=== PATIENT | female | born 1960 | race Caucasian/White ===

== ENCOUNTER → 2016-10-25 | Day surgery (SDC) | payer OTHER ==
[~2016-10-25] MED LIST: ACETAMINOPHEN/HYDROcodone 325 MG/5 MG TAB ONE; BUPIVACAINE/EPINEPHRINE 0.5% PF 10 ML VIAL ONE; BUPIVACAINE/EPINEPHRINE 0.5% PF 30 ML VIAL ONE; ISOSULFAN BLUE 50 MG/5 ML VIAL SQ ONE; LACTATED RINGER'S 1000 ML INJ 1,000 ML ONE; MIDAZOLAM HCL 2 MG/2 ML VIAL ONE; NEOMYCIN/POLYMYXIN/BACITRACIN OINT 15 GM TUBE ONE; ONDANSETRON HCL 4 MG/2 ML VIAL IV PUSH ONE; PROPOFOL 200 MG/20 ML AMP IV ONE; SODIUM CHLORIDE 0.9% 20 ML VIAL ONE; ceFAZolin 2 GM PREMIX 50 ML ONE
--- NOTE | 2016-10-25 17:00 | TN ---
cc: WHITE,KEILA DATE OF SURGERY 10/25/16 PREOPERATIVE DIAGNOSIS 1. Large metastatic right breast cancer. 2. Status post neoadjuvant chemotherapy. POSTOPERATIVE DIAGNOSIS 1. Large metastatic right breast cancer. 2. Status post neoadjuvant chemotherapy. PROCEDURES PERFORMED 1. Needle-localized lumpectomy left breast. 2. Left axillary node sampling with injection of isosulfan blue. SURGEON Allyson Garsia MD PAN WASHER Juan Armas MS III ANESTHESIA General LMA COMPLICATIONS None INDICATIONS FOR PROCEDURE Miss Hanley is a pleasant 56-year-old female who had a large left breast mass noted on mammography. She underwent biopsy and this confirmed to be an infiltrating ductal carcinoma. She had an MRI that showed a very large mass about 4.5 cm with three enlarged nodes in left axilla. She had a PET scan which confirmed metastatic disease to the axilla and the primary tumor. Because of the metastatic disease, she was offered neoadjuvant chemotherapy. The patient underwent neoadjuvant chemotherapy and a follow-up MRI after completion of chemotherapy showed resolution of the tumor and the decrease in the adenopathy. She was offered lumpectomy versus mastectomy. The patient was encouraged to consider mastectomy due to her large tumor size and positive family history of breast cancer. However, the patient elected to have lumpectomy. I advised her if she had positive margins that she would require mastectomy. She expressed understanding. The patient wanted to try lumpectomy first. Risks and benefits of lumpectomy as well as axillary sampling was discussed with her and she was agreeable. PROCEDURE IN DETAIL The patient was identified, brought to the operating and placed supine on the operating table. Adequate general anesthesia was achieved via LMA. The left breast and axilla was prepped and draped in standard surgical fashion. Five mL devices of isosulfan blue was injected into the left periareolar position as well as along the wire localization at the 3 o'clock position in the left breast. Attention was directed to the left axilla proper. 0.25% Marcaine was injected. A transverse incision was made. The subcutaneous skin flaps were then raised in all directions. Dissection proceeded down to the lateral border pectoralis major entering the axilla proper. Immediately we saw blue channels going to several blue nodes and several palpable firm nodes. We went ahead and excised all these nodes in toto using electrocautery Bovie. Care was taken to identify and preserve the axillary vein as well as the long thoracic and thoracodorsal nerves. Once we did this, by direct palpation there was some other higher nodes that were enlarged and fairly firm. I elected to go ahead and excise these nodes as well. After we completed removing these additional nodes, it was noted this was a fairly extensive axillary sampling as most of the fatty tissue and the lymph nodes in the axilla proper had been excised. The long thoracic and thoracodorsal nerves were clearly visible and undisturbed. Axillary vein was also visualized. Intercostal brachial nerve was sacrificed during the dissection. Once we did this, there was no other palpable nodes. There was no blue dye that we could see going any other places in the axilla proper. At this point, we elected to go ahead and wash the axilla out and place a 7-Amharic Jared-Stevenson drain through a separate stab wound incision. The wound was then closed in two layers using 3-0 and 4-0 Vicryl. Ten mL of local was injected into the drain. Sterile dressings were applied. Attention was now directed to the left breast. The patient had a wire localization in 3 o'clock position of left breast. By preoperative imaging, she was noted to have an extensive tumor in the left middle and upper quadrants of the left breast. An elliptical incision was therefore made from the nipple out to the axilla to include the wire localization. Subcutaneous skin flaps were then raised in all directions with generous margins. Dissection proceeded all the way down to the prepectoral fascia from which the fatty tissue was carefully dissected off. The specimen was excised in toto and sent to radiology for analysis. Dr. Parks called back stating that the residual clip was present as there was no residual mass. Then by direct palpation I could feel some very firm gritty tissue along the superior and medial borders of our lumpectomy excision. I went ahead and excised this as additional superior border and medial border. Once I did this, there was no other gritty or firm tissue noted. The wound was copiously irrigated with normal saline solution. The wound was then closed in two layers using 3-0 and 4-0 Vicryl. Sterile dressings were applied. The lumpectomy cavity was then filled with 25 mL of 0.25% Marcaine. The patient tolerated the procedure well, was awakened, brought to recovery in stable condition. MD RAGHAVENDRA Plata /3:16 PM /4:42 PM
== END | disposition home or self-care (01) ==
LOC: ESDC 09:49
PROVIDERS: ATTEND Surgery Trauma Surgery
DX: C50.912 Malignant neoplasm of unspecified site of left female breast (principal)
CPT/HCPCS: 00400; 01610; 19125; 38525; 38792; 88307; J0690; J2250; J2405; J3010; J7120; Q9968

== ENCOUNTER → 2016-11-06 | Day surgery (SDC) | payer OTHER ==
[~2016-11-06] MED LIST changes: +BUPIVACAINE LIPOSOME PF 1.3% 20 ML VIAL ONE; +BUPIVACAINE/EPINEPHRINE 0.5% 50 ML VIAL ONE; -BUPIVACAINE/EPINEPHRINE 0.5% PF 10 ML VIAL ONE; -BUPIVACAINE/EPINEPHRINE 0.5% PF 30 ML VIAL ONE; -ISOSULFAN BLUE 50 MG/5 ML VIAL SQ ONE; +KETOROLAC TROMETHAMINE 30 MG/ML (IVP) VIAL ONE; +MORPHINE SULFATE 4 MG/ML INJ ONE; -NEOMYCIN/POLYMYXIN/BACITRACIN OINT 15 GM TUBE ONE
--- NOTE | 2016-11-06 11:24 | TN ---
cc: KEILA MICHAEL M.D. DATE OF SURGERY: 11/06/2016 PREOPERATIVE DIAGNOSIS 1. Metastatic left breast cancer. 2. Status post neoadjuvant chemotherapy. POSTOPERATIVE DIAGNOSIS 1. Metastatic left breast cancer. 2. Status post neoadjuvant chemotherapy. PROCEDURE PERFORMED Bilateral simple mastectomy. SURGEON Keila Michael PLASTIC CNC MACHINE OPERATOR EPI Ibrahim ANESTHESIA General LMA. COMPLICATIONS None. INDICATION FOR PROCEDURE Ms. Hanley is a pleasant 56-year-old female who presented with a large left breast cancer with obvious axillary metastatic disease. She underwent neoadjuvant chemotherapy for this. By MRI and physical exam the tumor appeared to have resolved. She then underwent a needle-localized lumpectomy as well as an axillary sampling. Unfortunately, she was found to have a large amount of gross tumor still left in the left breast as well as 11/12 nodes positive. She was advised to undergo mastectomy. The patient requested prophylactic mastectomy on the right side for symmetry. The risks and benefits of bilateral mastectomy was discussed with her and she was agreeable. DETAILS OF PROCEDURE The patient was identified, brought to the operating room and placed supine on the operating table. After adequate general anesthesia was achieved with LMA, the anterior chest and axillae were prepped and draped in a standard surgical fashion. Attention was first directed to the right breast. An elliptical skin incision 9 x 18 cm was made around the anterior breast. Subcutaneous skin flaps were then raised cephalad to the clavicle, medially to the sternum, inferiorly to the inframammary ridge and laterally to the midaxillary line. Once the skin flaps had been raised in all directions the breast was dissected up off the pectoralis major muscle using electrocautery Bovie. The breast was followed up to the axillary tail where it was transected. The specimen was labeled with a short stitch superior and a long stitch lateral. The wound was copiously irrigated with normal saline solution. All bleeding points were controlled with electrocautery Bovie. A 10 Lithuanian Jared-Stevenson drain was then inserted through a separate stab wound incision after anesthetizing the skin and subcutaneous tissue with 0.25% Marcaine. The wound was then closed in three layers using 2-0 Vicryl, 3-0 Vicryl and 4-0 Vicryl. The drain was secured with 4-0 nylon. Sterile dressings were applied and attention was directed to the left side. On the left side a similar 9 x 18 cm elliptical incision was used. We included the previous lumpectomy incision inside of the surgical incision. Subcutaneous skin flaps were then raised cephalad to the clavicle, medially to the sternum, inferiorly to the inframammary ridge and laterally to the midaxillary line. The breast was dissected up off the pectoralis major muscle using electrocautery Bovie. The breast was followed up into the axillary tail. The previous axillary sampling cavity was entered. We did not enter the lumpectomy cavity at anytime. The specimen was labeled with a short stitch superior and a long stitch lateral, and sent to pathology for analysis. The axilla was then carefully inspected. There was a moderate amount of scar tissue from the previous axillary sampling. There was no gross palpable axillary adenopathy that I could appreciate. We did not do further dissection because the patient is going to get radiation therapy to her axilla for her 11 out of 12 positive nodes. Two Jared-Stevenson drains were then inserted through separate stab wound incisions on the inferior chest. Once was placed in the axilla and one was placed in the chest wall. The wound was irrigated with normal saline solution. The wound was then closed in three layers using 2-0 Vicryl, 3-0 Vicryl and 4-0 Vicryl. Sterile dressings were applied and the patient was awakened and brought to Recovery in stable condition. Please note the presence of the CR[facility] [employer]ER ob gyn physician assistant was medically necessary due to her specialized surgical skills and knowledge of my surgical technique. She was present and scrubbed for the entire procedure. MD ANGIE Plata/MYRON /10:55 AM /11:01 AM RAMIRO
== END | disposition home or self-care (01) ==
LOC: ESDC 06:31
PROVIDERS: ATTEND Surgery Trauma Surgery
DX: C50.912 Malignant neoplasm of unspecified site of left female breast (principal); Z92.21 Personal history of antineoplastic chemotherapy
CPT/HCPCS: 00400; 19303; 88307; C9290; J0690; J1885; J2250; J2270; J2405; J3010; J7120; 88309